=== PATIENT | female | born 1985 | race Two or more races ===

== ENCOUNTER 2018-06-23 11:16 | Outpatient (CLI) | END 2018-06-23 17:20 | disposition home or self-care (01) ==

== ENCOUNTER 2018-10-31 08:04 | Inpatient (IN) | payer MEDICAID ==
[~2018-10-31] VITALS: Ht 154.9 cm; Wt 84.0 kg
[~2018-10-31 08:04] MED LIST: PREN-47 PO
[2018-10-31 08:19] VITALS: Ht 154.9 cm; Wt 84.0 kg
[2018-10-31] MEDS ORDERED: LACTATED RINGER'S 1,000 ML IV PRN (08:22)
--- NOTE | 2018-10-31 08:22 | TRIAGE ---
OB Triage Datetime Report Generated by CPN: 10/31/2018 08:22 Datetime: 10/31/2018 08:20 Time of Arrival: 10/31/2018 08:00 EGA: 39.4 Arrived By: Ambulatory Arrived From: Home Chief Complaint: SROM Movement: Present Contractions: Occasional Rupture of Membranes: Denies Vaginal Discharge: Denies Recent Sexual Intercouse: Denies Abdominal Trauma: Not Applicable Time Provider Notified: 10/31/2018 08:15 Provider Notified: Hadadian Initial Plan: NST, VE Datetime: 10/31/2018 08:11 Vaginal Exam Dilatation (cms): 1.0 Effacement (%): 70 Station: -3 Exam By: TM Membrane Status: Ruptured Membranes Rupture Method: Spontaneous Amniotic Fluid Color: Clear Amniotic Fluid Amount: Moderate Amniotic Fluid Odor: None Cervix, Position: Posterior Datetime: 10/31/2018 08:10 Assessment Type: Triage Maternal Assessment Level of Consciousness: Fully Conscious DTR's/Clonus: DTRs 2+; No Clonus Headache: Denies Blurred Vision: No Respiratory Effort: Unlabored; Regular Rhythm; Equal Expansion Breath Sounds, Left: Clear and Equal Breath Sounds, Right: Clear and Equal Nausea/Vomiting: Denies RUQ Epigastric Pain: Denies Lower Extremities Edema: Bilateral Lower Extremities Degree: Trace Upper Extremities Edema: None Degree: None Facial Edema: None Fall Risk Assessment History of Falling: (0) No Secondary Diagnosis: (0) No Ambulatory Aid: (0) Bedrest/Nurse Assist IV Therapy: (0) No Gait: (0) Normal/Bedrest/Immobile Mental Status: (0) Oriented to Own Ability Fall Score: 0 Fall Risk Score Definition: No Risk: No action required Datetime: 10/18/2018 16:56 Time of Arrival: 10/18/2018 14:25 EGA: 37.5 Arrived By: Ambulatory Arrived From: Home Chief Complaint: pt here Datetime: 10/18/2018 16:53 Vaginal Exam Dilatation (cms): 0.0 Exam By: [email or web address] Vaginal Bleeding: None Cervix, Position: Posterior Datetime: 10/18/2018 16:00 Stage of : OB Triage Maternal Assessment Level of Consciousness: Fully Conscious Labor Evaluation Frequency: 2-6 Monitor Mode: External Duration (sec)2399: 60-90 Quality: Mild Resting Tone [place]: Relaxed Heart Rate FHR Baseline Rate: 135 Monitor Mode: External US Variability: Moderate 6-25 bpm Accelerations: 15X15 Decelerations: None Category: Category I Pain Assessment Pain Scale: 0 Pain Goal: 3 Membrane Status: Intact Vaginal Bleeding: None Datetime: 10/18/2018 15:24 Stage of : OB Triage Labor Evaluation Frequency: irreg. Monitor Mode: External Quality: Mild Pattern: Normal: <= 5 Contractions in 10 Minutes Resting Tone [place]: Relaxed Heart Rate FHR Baseline Rate: 135 Monitor Mode: External US Variability: Moderate 6-25 bpm Accelerations: 15X15 Decelerations: None Category: Category I Datetime: 10/18/2018 15:13 Assessment Type: Triage Maternal Assessment Level of Consciousness: Fully Conscious DTR's/Clonus: DTRs 2+; No Clonus Headache: Denies Blurred Vision: No Respiratory Effort: Unlabored; Regular Rhythm; Equal Expansion Breath Sounds, Left: Clear and Equal Breath Sounds, Right: Clear and Equal Nausea/Vomiting: Denies RUQ Epigastric Pain: Denies Lower Extremities Edema: None Upper Extremities Edema: None Degree: None Facial Edema: None Fall Risk Assessment History of Falling: (0) No Secondary Diagnosis: (0) No Ambulatory Aid: (0) Bedrest/Nurse Assist IV Therapy: (0) No Gait: (0) Normal/Bedrest/Immobile Mental Status: (0) Oriented to Own Ability Fall Score: 0 Fall Risk Score Definition: No Risk: No action required Comment: Datetime: 10/18/2018 15:11 Monitor Mode: External Monitor Mode: External US Datetime: 06/23/2018 17:22 Time of Arrival: 10/18/2018 14:25 EGA: 37.5 Arrived By: Ambulatory Arrived From: Office Chief Complaint: oligo per MD Movement: Present Contractions: Denies/Absent Rupture of Membranes: Denies Vaginal Bleeding: None Vaginal Discharge: Denies Recent Sexual Intercouse: Denies Patient Complaints: None Time Provider Notified: 10/18/2018 16:36 Provider Notified: HADADIAN Initial Plan: NST/BPP/SVE Datetime: 06/23/2018 11:37 EGA: 21.0 Datetime: 06/23/2018 11:35 Fall Score: 0 Fall Risk Score Definition: No Risk: No action required
[2018-10-31] MEDS ORDERED: MISOPROSTOL 200 MCG TAB PR PRN (08:30)
[2018-10-31] MEDS ORDERED: IBUPROFEN 600 MG TAB PO PRN (08:30)
[2018-10-31] MEDS ORDERED: OXYTOCIN 30 UNITS/LR 500 ML IV PRN (08:30)
[2018-10-31] MEDS ORDERED: METHYLERGONOVINE 0.2 MG INJ IM PRN (08:30)
[2018-10-31] MEDS ORDERED: BUTORPHANOL 2 MG INJ IV PRN (08:30)
[2018-10-31] MEDS ORDERED: LIDOCAINE 1% (MPF) 30 ML INJ INJ PRN (08:30)
[2018-10-31] MEDS ORDERED: OXYTOCIN 30 UNITS/LR 500 ML IV SCH ×3 (08:30→23:00)
[2018-10-31] MEDS ORDERED: CARBOPROST 250 MCG INJ IM PRN (08:30)
[2018-10-31] MEDS: LACTATED RINGER'S 1,000 ML IV SCH ×3 (08:54→20:45)
[2018-10-31] MEDS: MISOPROSTOL 50 MCG CAPSULE PO SCH ×3 (10:42→17:00)
[2018-10-31] MEDS ORDERED: AMPICILLIN 2 GM/NS (PMX) 100 ML IVPB ONE (20:30)
[2018-11-01] MEDS: AMPICILLIN 1 GM/NS (PMX) 50 ML IVPB SCH ×2 (00:49→05:06)
[2018-11-01] MEDS ORDERED: FENTAnyl 50 MCG/ML VIAL IV SCH (07:45)
[2018-11-01] MEDS ORDERED: FAMOTIDINE 20 MG INJ IV ONE (08:30)
--- NOTE | 2018-11-01 08:33 | HP ---
Date/Time of Note Date/Time of Note DATE: 11/01/18 TIME: 08:29 OB - History Hx of Present Free Text/Dictation 33 years old 1 with single intrauterine at 39 weeks and 4 days with DIANA of 11/03/2018 presented to triage on 10/31/18 with complaint of leakage of fluid 06:20. She states good movement. She denies nausea, vomiting, shortness of breath, chest pain, headache, visual changes, vaginal bleeding or LOF. Chief Complaint: Leakage of fluid Estimated Due Date: Nov 03, 2018 : 1 Care: Good Care Ultrasounds: Normal mid trimester US Obstetrical Complications: None Medical Complications: None Past Family/Social History * Past Medical, Surgical, Family and Obstetric Histories reviewed from chart. Blood Type: O+ Rubella: immune RPR/VDRL: Negative GBS Status: Negative HBsAG: Negative OB Admission Exam Vital Signs Vital Signs Blood pressure 140/85, pulse rate 72/minutes, respiratory rate 16/minutes, temperature 98.6 Physical Exam HEENT: WNL Heart: Rhythm Normal Lungs: Clear Abdomen: WNL Extremities: Normal Cervical Dilatation: 1cm Effacement: 50% Station: -3 Membranes: Ruptured Amniotic Fluid: Clear Heart Rate: 140's Accelerations: Accelerations Present Decelerations: No Decelerations Varibility: Moderate Contractions on Admission: 6-10 Minutes Apart Intensity: Mild Last 72 hours Lab Results CBC & BMP 10/31/18 08:45 Liver Function Test 10/31/18 08:45 Alanine Aminotransferase (ALT/SGPT) 18 Albumin 3.8 Alkaline Phosphatase 284 H Aspartate Amino Transf (AST/SGOT) 19 Direct Bilirubin 0.00 Total Protein 6.9 OB Assessment/Plan Other plan: 33 years old 1 with single intrauterine at 39 weeks and 4 days with gestational hypertension and spontaneous rupture of membrane. - FHR: No sign of metabolic acidosis- Category I - Continuous EFM, toco - CBC, blood type and screen - Analgesia options with R/B/A discussed in detail with patient - Epidural per patient request - Please see the orders - O+/Rubella: Immune - GBS: Negative Admission, procedures, expectations, risks and possible complications have been discussed in detail with the patient. Risk of vaginal delivery including but not limited to bleeding, infection, cervical laceration, placental retention, injury to fetus, blood transfusion, blood transfusion related infection, risk of anesthesia, adhesion, cervical laceration, episiotomy/laceration, possible delivery with risk of bleeding, infection, injury to other organs (bowel, bladder, ureter, vessels, nerves), injury to fetus, blood transfusion, blood transfusion related infection, risk of anesthesia, scar and hernia formation, needs for future , removal of uterus or any other indicated surgery discussed with the patient. She expressed understanding and repeats the risks. All of her questions were answered. She signed the informed consent. PHYSICIAN'S VERIFICATION OF INFORMED CONSENT The patient was counseled regarding the procedure, its indications, risks, potential complications and alternatives and any questions were answered. Consent was obtained. PLANNED PROCEDURE/TREATMENT: Vaginal delivery, episiotomy, repair of laceration possible delivery ANA SHERMAN Nov 01, 2018 08:33
--- NOTE | 2018-11-01 08:37 | LDN ---
Date/Time of Note Date/Time of Note DATE: 11/01/18 TIME: 08:34 Delivery Summary 33 years old 1 with GHTN at 39 weeks and 6 days delivered a viable female over third-degree posterior vaginal and perirenal laceration at 07:23. Nose and mouth suctioned. Rest of body delivered. Cord clamped and cut after stopping pulsation. Baby given to the nurse. Placenta delivered spontaneously and intact with three-vessel cord. Laceration repaired with 2-0 Vicryl. The patient tolerated procedure well Weight 6pound 8 ounces - 2945 g 8 at 1 minutes and 9 at 5 minutes EBL 450 mL, patient received 1000 mcg Cytotec and Pitocin. Weeks of Gestation 39 weeks and 6 days Placenta Delivered: Spontaneously Meconium: none Episiotomy: No Estimated blood loss: 450 Sponge & Needle done & correct: Yes All needle counts correct: Yes Any foreign bodies felt in the: No Delivery Information Sex Sex: female Apgars 1 Minute: 8 5 Minute: 9 10 Minute: 10 Suctioning Nose & mouth suctioned at ramone: Yes Umbilical Cord Umbilical cord with: 3 Vessels Cord Blood was obtained: Yes Mother & Baby Disposition Disposition Mom & Baby to Maternity; Good: Yes ANA SHERMAN Nov 01, 2018 08:37
[2018-11-01] MEDS ORDERED: MAGNESIUM HYDROXIDE 30ML CUP PO PRN (09:00)
[2018-11-01] MEDS: LACTATED RINGER'S 1,000 ML IV* SCH ×2 (09:43→17:43)
[2018-11-01] MEDS: DEXTROSE 5%-LR 1,000 ML IV SCH ×2 (09:43→11:26)
[2018-11-01 10:00] VITALS: BP 129/73; PULSE 97; RESP 18
[2018-11-01] MEDS ORDERED: DIPHENHYDRAMINE 50 MG INJ IV PRN (10:00)
[2018-11-01] MEDS ORDERED: OXYCODONE/ASPIRIN (4.88/325) TAB PO PRN (10:00)
[2018-11-01] MEDS ORDERED: DIBUCAINE 1% 30 GM OINT TOP PRN (10:00)
[2018-11-01] MEDS ORDERED: CARBOPROST 250 MCG INJ IM PRN (10:00)
[2018-11-01] MEDS ORDERED: LANOLIN HPA 1 PKT TOP PRN (10:00)
[2018-11-01] MEDS ORDERED: OXYTOCIN 30 UNITS/LR 500 ML IV PRN (10:00)
[2018-11-01] MEDS ORDERED: ONDANSETRON 4 MG INJ IV PRN (10:00)
[2018-11-01] MEDS ORDERED: METHYLERGONOVINE 0.2 MG INJ IM PRN (10:00)
[2018-11-01] MEDS ORDERED: SENNA/DOCUSATE NA (8.6MG/50MG) TAB PO PRN (10:00)
[2018-11-01] MEDS ORDERED: MISOPROSTOL 200 MCG TAB PR PRN (10:00)
[2018-11-01] MEDS ORDERED: ZOLPIDEM 5 MG TAB PO PRN (10:00)
[2018-11-01] MEDS: WITCH HAZEL/GLYCERIN PAD PR PRN (11:24)
[2018-11-01] MEDS: BENZOCAINE 20% 56 ML SPRAY TOP PRN (11:24)
[2018-11-01] MEDS: IBUPROFEN 600 MG TAB PO SCH ×2 (11:25→18:00)
[2018-11-01 12:30] VITALS: BP 125/70; PULSE 77; RESP 18
[2018-11-01] MEDS: ACETAMINOPHEN 325 MG TAB PO PRN ×2 (15:27→21:34)
[2018-11-01 16:19] VITALS: BP 127/78; PULSE 79; RESP 18
[2018-11-01 20:00] VITALS: BP 107/65; PULSE 99; RESP 19
[2018-11-02] VITALS: BP 118/69; PULSE 97; RESP 19
[2018-11-02] MEDS: LACTATED RINGER'S 1,000 ML IV* SCH ×3 (01:43→17:43)
[2018-11-02] MEDS: DEXTROSE 5%-LR 1,000 ML IV SCH ×3 (01:43→17:43)
[2018-11-02 04:00] VITALS: BP 109/62; PULSE 87; RESP 18
[2018-11-02] MEDS: IBUPROFEN 600 MG TAB PO SCH ×4 (06:00→17:51)
[2018-11-02] MEDS: FAMOTIDINE 20 MG TAB PO SCH ×2 (06:06→20:38)
[2018-11-02 08:00] VITALS: BP 104/62; PULSE 87; RESP 18
[2018-11-02] MEDS: BENZOCAINE 20% 56 ML SPRAY TOP PRN ×2 (08:42→20:38)
[2018-11-02] MEDS: WITCH HAZEL/GLYCERIN PAD PR PRN ×2 (08:42→20:38)
[2018-11-02 16:00] VITALS: BP 106/63; PULSE 88; RESP 19
[2018-11-02 20:30] VITALS: BP 113/65; PULSE 87; RESP 18
[2018-11-03] MEDS: DEXTROSE 5%-LR 1,000 ML IV SCH (00:32)
[2018-11-03] MEDS: LACTATED RINGER'S 1,000 ML IV* SCH (00:33)
[2018-11-03 04:00] VITALS: BP 99/55; PULSE 84; RESP 18
[2018-11-03] MEDS: IBUPROFEN 600 MG TAB PO SCH ×3 (06:00→12:00)
--- NOTE | 2018-11-03 07:45 | DS ---
Date/Time of Note Date/Time of Note DATE: 11/03/18 TIME: 07:44 Obstetrical Discharge Record Final Diagnosis Final Diagnosis: Term delivered Vaginal Delivery Obstetrical Delivery: Spontaneous Complications Augmentation: Yes Induction: Yes Rupture of Membranes: No Condition on Discharge Physical Assessment Voiding: Yes Bowel Movement: Yes Breast: Soft, non-tender, Filling Fundus: Firm Abdomen and Incision: soft, not tender Calf Tenderness: No Patient Condition: Good UTE RICH MD Nov 03, 2018 07:45
[2018-11-03 07:50] VITALS: BP 112/73; PULSE 78; RESP 17
[2018-11-03] MEDS: FAMOTIDINE 20 MG TAB PO SCH (08:47)
[2018-11-03] MEDS: WITCH HAZEL/GLYCERIN PAD PR PRN (08:52)
[2018-11-03] MEDS ORDERED: MEASLES,MUMPS,RUBELLA VACCINE INJ SC* ONE (09:00)
[2018-11-03] MEDS ORDERED: DIPHTH/TET/ACEL PERTUSS (ADULT) 0.5 ML VIAL IM* ONE (09:00)
== END 2018-11-03 13:30 | disposition home or self-care (01) | DRG 768 ==
LOC: OBT 08:04 → L-D 08:04 → OBT 08:15 → L-D 08:41 → PP1 11-01 09:52
PROVIDERS: ADMIT Obstetrics & Gynecology; ATTEND Obstetrics & Gynecology
PROC: 4A1HXCZ Monitoring of Products of Conception, Cardiac Rate, External Approach (ICD-10-PCS; 2018-10-31)
PROC: 10E0XZZ Delivery of Products of Conception, External Approach (ICD-10-PCS; principal; 2018-11-01)
PROC: 0DQR0ZZ Repair Anal Sphincter, Open Approach (ICD-10-PCS; 2018-11-01)
DX: O13.4 Gestational [pregnancy-induced] hypertension without significant proteinuria, complicating childbirth (principal); Z37.0 Single live birth; Z3A.39 39 weeks gestation of pregnancy; O70.20 Third degree perineal laceration during delivery, unspecified
CPT/HCPCS: 76815; 80053; 81001; 84560; 85025; 85610; 85730; 86592; 86850; 86900; 86901; G0463; J0290; J0595; J2210; J2590; J3010; J7120; J7121